=== PATIENT | female | born 1945 | race Asian ===

== ENCOUNTER 2021-06-03 12:58 | Outpatient (CLI) | payer MEDICARE | END 2021-06-03 23:59 | disposition home or self-care (01) | LOC: CFH 12:58 | PROVIDERS: ATTEND Internal Medicine Cardiovascular Disease | DX: R03.0 Elevated blood-pressure reading, without diagnosis of hypertension (principal); R07.89 Other chest pain; R53.83 Other fatigue | CPT/HCPCS: 78452; 93017; A9502 ==